=== PATIENT | female | born 1990 | race African-American/Black ===

== ENCOUNTER 2016-11-02 23:42 | Emergency (ER) | payer OTHER ==
[~2016-11-02] VITALS: Ht 162.6 cm; Wt 95.2 kg
== END 2016-11-03 01:25 | disposition home or self-care (01) ==
LOC: CED 23:42 → CFTX 23:42
DX: J02.0 Streptococcal pharyngitis (principal); F17.200 Nicotine dependence, unspecified, uncomplicated
CPT/HCPCS: 87880; 96372; 99283; J0561